=== PATIENT | male | born 1960 | race African-American/Black ===

== ENCOUNTER 2016-06-03 18:42 | Emergency (ER) | payer OTHER ==
[~2016-06-03] VITALS: Ht 182.9 cm; Wt 72.5 kg
[~2016-06-03 18:42] MED LIST: BENZ1TAB70 PO; DIVA500T69 PO; FLUD25I IM; GABA400C PO; LISI-661 PO; METF500T PO; OMEP20CA4 PO; QUET300T2 PO; SIMV5TAB2 PO; SITA100 PO
[2016-06-03 19:06] LABS: GLUCOSE,POINT OF CARE 412 MG/DL (70-110)
[2016-06-03] MEDS ORDERED: SODIUM CHLORIDE 0.9% 2,000 ML IV ONE (19:45)
[2016-06-03 19:57] LABS: BASOPHILS % (AUTO) 0.9 % (0.0-2.0); EOSINOPHILS % (AUTO) 1.1 % (1.0-6.0); HEMOGLOBIN 11.6 g/dL (13.5-17.5); LYMPHOCYTES # (AUTO) 2.3 K/uL (1.0-4.8); LYMPHOCYTES % (AUTO) 38.2 % (22.0-44.0); MEAN CORPUSCULAR HEMOGLOBIN 24.6 pg (26.0-34.0); MEAN CORPUSCULAR HGB CONC 31.2 G/dL (31.0-37.0); MEAN CORPUSCULAR VOLUME 79 fL (80-100); MONOCYTES # (AUTO) 0.7 K/uL (0.1-1.0); MONOCYTES % (AUTO) 11.8 % (2.0-9.0); NEUTROPHILS # (AUTO) 2.9 K/uL (1.8-7.7); PLATELET COUNT (AUTO) 144 K/uL (150-450); RED BLOOD CELL COUNT(AUTO) 4.69 MIL/uL (4.50-5.90); RED CELL DISTRIBUTION WIDTH 17.9 % (11.5-14.5)
[2016-06-03 20:11] LABS: ANION GAP 9 mmol/L (8-16); CALCIUM, TOTAL 8.7 mg/dL (8.8-10.5); CARBON DIOXIDE 29 mmol/L (22-29); CHLORIDE 105 mmol/L (98-107); CREATININE 0.94 mg/dL (0.60-1.30); GLOMERULAR FILTR. RATE CALC > 60 mL/min (>60); POTASSIUM 3.9 mmol/L (3.5-5.1); SODIUM SERUM 143 mmol/L (136-145); UREA NITROGEN, BLOOD 5 mg/dL (7-18)
[2016-06-03 20:26] LABS: ALANINE AMINOTRANSFERASE 14 U/L (12-78); ASPARTATE AMINOTRANSFERASE 10 U/L (15-37); BILIRUBIN,TOTAL 0.2 mg/dL (0.1-1.0); TOTAL PROTEIN, SERUM 6.6 g/dL (6.4-8.2)
[2016-06-03 20:51] LABS: GLUCOSE,POINT OF CARE 312 MG/DL (70-110)
[2016-06-03] MEDS ORDERED: MetFORMIN HCL 500 MG TABLET PO ONE (21:15)
[2016-06-03 21:29] LABS: RBC MORPHOLOGY COMMENT ABNORMAL RBC MORPH
[2016-06-03 22:56] LABS: GLUCOSE,POINT OF CARE 259 MG/DL (70-110)
[2016-06-04 00:24] VITALS: BP 127/80
== END 2016-06-04 00:24 | disposition home or self-care (01) ==
LOC: EMS 18:43
DX: R41.82 Altered mental status, unspecified (principal); R45.851 Suicidal ideations; F15.10 Other stimulant abuse, uncomplicated; F12.10 Cannabis abuse, uncomplicated; E11.65 Type 2 diabetes mellitus with hyperglycemia; F17.200 Nicotine dependence, unspecified, uncomplicated; K21.9 Gastro-esophageal reflux disease without esophagitis; I10 Essential (primary) hypertension; E78.00 Pure hypercholesterolemia, unspecified; Z88.8 Allergy status to other drugs, medicaments and biological substances
CPT/HCPCS: 36415; 70450; 80053; 80307; 82962; 85025; 96360; 96361; 99285; G0480; J7030